=== PATIENT | male | born 2000 | race African-American/Black ===

== ENCOUNTER 2024-05-04 15:59 | Inpatient (IN) ==
[2024-05-04 17:29] LABS: Hemoglobin 14.1 g/dL (13.2-16.3); Mean Corpuscular Hemoglobin 28.7 pg (27-33); Mean Corpuscular Hgb Conc 32.9 g/dL (31-36); Mean Corpuscular Volume 87.1 fL (80-97); Red Blood Count 4.93 10^6/uL (4.06-5.63); Red Cell Distribution Width 13.7 % (12-17); White Blood Count 4.5 10^3/uL (3.6-10.2)
[2024-05-04 17:53] LABS: Urine Benzodiazepine Screen None Detected (None Detect); Urine Cannabinoids Screen Presumptive Positive (None Detect); Urine Opiates Screen None Detected (None Detect)
[2024-05-04 18:00] LABS: Albumin 4.4 g/dL (3.2-5.2); Albumin/Globulin Ratio 1.5 (1-3); Calcium 9.1 mg/dL (8.6-10.3); Creatinine, Serum 0.96 mg/dL (0.67-1.17); Potassium 3.6 mmol/L (3.5-5.0); Total Protein 7.4 g/dL (6.4-8.9); eGFR CKD-EPI 113.9 (>60)
[2024-05-04 18:30] LABS: ABS Eosinophils 0.1 10^3/uL (0.0-0.5); ABS Lymphocytes 1.8 10^3/uL (1.0-4.8); ABS Monocytes 0.3 10^3/uL (0.0-1.1); ABS Neutrophils 2.2 10^3/uL (1.5-7.6); ABS Nucleated RBC 0.01 10^3/ul; Eosinophil % 3.3 %; Lymphocyte % 39.6 %; Mean Platelet Volume 9.4 fL (7.5-11.2); Nucleated Red Blood Cells % 0.1 %/100WBC (0.0-0.8); Platelet Count 225 10^3/uL (150-450)
[2024-05-04] MEDS ORDERED: Al Hydrox/Mg Hydrox/Simet LIQ 30 ML UDC PO PRN (20:24)
[2024-05-04] MEDS ORDERED: Nicotine GUM 2MG FRUIT FLAVOR PO PRN (21:00)
[2024-05-05 08:07] VITALS: BP 156/91
[2024-05-05] MEDS: Vitamin THERAPEUTIC TAB PO SCH (08:16)
[2024-05-05 08:22] LABS: HDL Cholesterol 94.4 mg/dL
[2024-05-05] MEDS: Nicotine PATCH 14 MG/24 HR PATCH TRANSDERM SCH (10:10)
== END 2024-05-05 11:30 | disposition home or self-care (01) | DRG 882 ==
LOC: ED 15:59 → EDHOLD 19:47 → BSU 19:50
PROVIDERS: ADMIT Student in an Organized Health Care Education/Training Program; ATTEND Student in an Organized Health Care Education/Training Program